=== PATIENT | female | born 1985 | race Two or more races ===

== ENCOUNTER 2020-11-21 13:30 | Outpatient (CLI) | payer OTHER | END 2020-11-21 14:57 | disposition home or self-care (01) | LOC: PRENATAL 13:30 | PROVIDERS: ATTEND Obstetrics & Gynecology Maternal & Fetal Medicine | DX: O24.311 Unspecified pre-existing diabetes mellitus in pregnancy, first trimester (principal); O36.80X1 Pregnancy with inconclusive fetal viability, fetus 1; O09.521 Supervision of elderly multigravida, first trimester; Z36.89 Encounter for other specified antenatal screening; Z3A.10 10 weeks gestation of pregnancy ==

== ENCOUNTER 2021-01-22 14:25 | Outpatient (CLI) | payer OTHER | END 2021-01-22 16:45 | disposition home or self-care (01) | LOC: PRENATAL 14:25 | PROVIDERS: ATTEND Obstetrics & Gynecology Maternal & Fetal Medicine | DX: O35.0XX1 Maternal care for (suspected) central nervous system malformation in fetus, fetus 1 (principal); O35.3XX1 Maternal care for (suspected) damage to fetus from viral disease in mother, fetus 1; O98.512 Other viral diseases complicating pregnancy, second trimester; O09.522 Supervision of elderly multigravida, second trimester; O99.212 Obesity complicating pregnancy, second trimester; Z36.89 Encounter for other specified antenatal screening; Z3A.19 19 weeks gestation of pregnancy ==

== ENCOUNTER 2021-03-22 13:15 | Outpatient (CLI) | payer OTHER | END 2021-03-22 14:40 | disposition home or self-care (01) | LOC: PRENATAL 13:15 | PROVIDERS: ATTEND Obstetrics & Gynecology Maternal & Fetal Medicine | DX: O09.529 Supervision of elderly multigravida, unspecified trimester (principal); O24.319 Unspecified pre-existing diabetes mellitus in pregnancy, unspecified trimester; O35.0XX0 Maternal care for (suspected) central nervous system malformation in fetus, not applicable or unspecified; O26.849 Uterine size-date discrepancy, unspecified trimester ==

== ENCOUNTER 2021-04-19 13:37 | Outpatient (CLI) | payer OTHER | END 2021-04-19 15:00 | disposition home or self-care (01) | LOC: PRENATAL 13:37 | PROVIDERS: ATTEND Obstetrics & Gynecology Maternal & Fetal Medicine | DX: O09.529 Supervision of elderly multigravida, unspecified trimester (principal); O24.319 Unspecified pre-existing diabetes mellitus in pregnancy, unspecified trimester; O35.0XX0 Maternal care for (suspected) central nervous system malformation in fetus, not applicable or unspecified; O26.849 Uterine size-date discrepancy, unspecified trimester ==

== ENCOUNTER 2021-05-15 13:41 | Outpatient (CLI) | payer OTHER | END 2021-05-15 14:40 | disposition home or self-care (01) | LOC: PRENATAL 13:41 | PROVIDERS: ATTEND Obstetrics & Gynecology Maternal & Fetal Medicine | DX: O26.849 Uterine size-date discrepancy, unspecified trimester (principal); O09.529 Supervision of elderly multigravida, unspecified trimester; O24.319 Unspecified pre-existing diabetes mellitus in pregnancy, unspecified trimester; O34.219 Maternal care for unspecified type scar from previous cesarean delivery; Z3A.36 36 weeks gestation of pregnancy ==

== ENCOUNTER 2021-05-21 09:30 | Inpatient (IN) | payer OTHER ==
[~2021-05-21] VITALS: Ht 162.6 cm; Wt 3.2 kg
[2021-05-21] MEDS ORDERED: LEVEMIR (10:45)
[2021-05-21] MEDS ORDERED: APIDRA (10:45)
[2021-05-31] MEDS ORDERED: APIDRA SOL100 UNIT/1 (13:00)
[2021-05-31] MEDS ORDERED: HUMULIN N100 UNIT/2 (13:00)
[2021-05-31] MEDS ORDERED: LEVEMIR FL100 UNIT/1 (13:00)
[2021-05-31] MEDS ORDERED: PROGESTERONE200 MG (13:01)
== END 2021-06-02 14:24 | disposition home or self-care (01) | DRG 787 ==
LOC: LDR 05-31 09:30 → O/R 05-31 12:47 → SURG-SUITE 05-31 12:47
PROVIDERS: ADMIT Specialist; ATTEND Specialist
PROC: 4A1HXCZ Monitoring of Products of Conception, Cardiac Rate, External Approach (ICD-10-PCS; 2021-05-31)
PROC: 10D00Z1 Extraction of Products of Conception, Low, Open Approach (ICD-10-PCS; principal; 2021-05-31 10:30)
DX: O34.211 Maternal care for low transverse scar from previous cesarean delivery (principal); O24.013 Pre-existing type 1 diabetes mellitus, in pregnancy, third trimester; O99.820 Streptococcus B carrier state complicating pregnancy; Z3A.38 38 weeks gestation of pregnancy; E10.9 Type 1 diabetes mellitus without complications; Z79.4 Long term (current) use of insulin; Z37.0 Single live birth

== ENCOUNTER 2021-05-21 13:13 | Outpatient (CLI) | payer OTHER ==
[~2021-05-21 13:13] MED LIST: APIDRA; LEVEMIR
== END 2021-05-21 17:15 | disposition home or self-care (01) ==
LOC: NST 13:13
PROVIDERS: ATTEND Specialist
DX: Z34.83 Encounter for supervision of other normal pregnancy, third trimester (principal)

== ENCOUNTER 2021-05-28 07:58 | Outpatient (CLI) | payer OTHER | END 2021-05-28 08:58 | disposition home or self-care (01) | LOC: NST 07:58 | PROVIDERS: ATTEND Specialist | DX: Z34.83 Encounter for supervision of other normal pregnancy, third trimester (principal) ==